=== PATIENT | male | born 1945 | race Caucasian/White ===

== ENCOUNTER 2016-09-08 10:59 | Emergency (ER) | payer OTHER ==
[~2016-09-08 10:59] MED LIST: BUPR75TA10 PO; CITA40TA13 PO; LISI-571 PO; METO25TA99 PO; MORP-32 PO; OXYC10TA8 PO
[2016-09-08 11:10] VITALS: BP 119/87; PULSE 110; RESP 16; O2SAT 98
--- NOTE | 2016-09-08 11:10 | ED.REPORT ---
HPI-General Illness Date of Service Sep 08, 2016 ED Provider: MD Linnette This is a 70 year old male with a history of hepatitis C presenting to the emergency department due to pain medication management concerns. The pt has a history of severe claudication with pain in the lower extremities. He has been worked up with vascular surgeon, Dr. Wyatt with understanding to undergo stenting on 09/22/2016. However, pt has been unable to see his PCP at [facility] due to changes in providers there. Pt last saw Dr. Gonzalez at [facility] who refused to prescribe his chronic pain medications. He takes 10 mg oxycodone three times a day for pain management, this was originally prescribed by Dr. Nobles, who no longer practices in the office. Based on ODILIA report today, the history is consistent with prescriptions. He is not over-using, not filling prescriptions early, and is not going to multiple providers for medications. He is now out of his medication and last took oxycodone 2 days ago. Nursing Notes Stated Complaint: POSSIBLE CHRONIC PAIN Chief Complaint: General Complaint Nursing Notes Reviewed: Yes Allergies: Coded Allergies: No Known Allergies (Verified , 04/08/16) Scheduled Bupropion (Bupropion) 75 Mg Tablet 75 MG PO HS Citalopram (Citalopram) 40 Mg Tablet 40 MG PO HS Lisinopril (Lisinopril) 5 Mg Tablet 2.5 MG PO DAILY Metoprolol Succinate ER (Metoprolol Succinate ER) 25 Mg Tab.er.24h 25 MG PO DAILY Morphine Sulfate ER (Morphine Sulfate ER) 15 Mg Tablet 30 MG PO DAILYWM Morphine Sulfate ER (Morphine Sulfate ER) 15 Mg Tablet 15 MG PO HS Scheduled PRN oxyCODONE (oxyCODONE) 10 Mg Tablet 10 MG PO TID PRN PRN For Pain General Time Seen by MD: 11:09 Chief Complaint Other Hx Obtained From: Patient Arrived By: Walk-in Sudden in Onset?: No Severity: Current: Moderate Pertinent Negative: Pt denies other symptoms Recent Healthcare: No recent doctor visit, No recent hospitalization Similar Sx Previous: No Past Medical History Past Medical History Hepatitis C spontaneous pneumothorax Reports: COPD Reports: Depression Past Surgical History none reported Smoking History Current Every Day Smoker Social History Alcohol Use: Denies alcohol use Drug Use: THC Ambulatory Status Cane Review of Systems Full Review of Systems Constitutional: Denies: Chills, Fever Respiratory: Denies: Non-productive cough, Shortness of breath Musculoskeletal: Reports: Extremity pain Neurologic: Denies: Headache Complete sys rev & neg: except as marked. Physical Exam Vital Signs Vital Signs Date Time Temp Pulse Resp B/P Pulse Ox O2 Delivery O2 Flow Rate FiO2 09/08/16 11:10 110 16 119/87 98 Room Air Initial VS: Reviewed General/Constitutional: Well-developed, Well-nourished Head / Eyes: Atraumatic, Normocephalic, PERRL ENT: Mucous membranes moist, Conjunctiva normal, No scleral icterus Neck: Supple, Non-tender, Full range of motion Respiratory: Breath sounds normal, Clear to auscultation, No respiratory distress Abdomen / GI: Soft, Non-tender, No guarding, No rebound, No distention Skin: Warm, Dry, No cyanosis Neurologic: Alert, Oriented, Nonfocal Psychiatric: Mood/affect normal, Behavior normal, Normal thought content Cardiovascular: Regular rhythm, Heart sounds NL, No murmurs, No rubs Heart Rate / Rhythm: Positive: Tachycardia Lower Extremity / Pelvis / MS: Vascular intact No hair on lower extremities, no palpable pulses, good cap refill Re-Eval/Medical Decision Re-Evaluation/Progress Note: Counseled tobacco abuse and discussion of smoking cessation Time of Eval: 13:17 Re-Evaluation/Progress Note: Discussed plan for d/c, all questions addressed Consultation : Referral / Consult Name: Brayan Gonzalez DO Call Returned at: 13:10 Note: Will see pt in office Counseled Regarding: Diagnosis, Lab results, Need for follow-up, When/why to return to ED Discharge & Departure Primary Impression: Claudication Additional Impression: Leg pain Laterality: bilateral Qualified Code: M79.604 - Pain in right leg Disposition: Home Discharge Condition All VS Reviewed: Yes Condition: Stable Additional Instructions: You really have gotten caught between multiple doctors coming and going. That is so frustrating. I am glad you have an apt [facility] Dr Peoples to figure out what can be done with the claudication and the pain you have from this. You had been on 10mg oxycodone 3 times a day and your pharmacy records indicate that you have no abused this at all (no early refills, no multiple providers etc). You have an issue that may well be fixable and thus alleviate need for continued narcotics. At this time, I have spoken with Dr Gonzalez. We have agreed that I will give a month prescription for oxycodone 10mg 3times/day. You need to schedule an apt with him in a month. You will have met with the vascular surgeon by then and will have a better plan in place for dealing with the issues underlying your pain. You can discuss the continued pain management options with Dr Gonzalez at that time. I would still encourage you to schedule, and keep, and apt with the chronic pain clinic. I hope the pain improved with better vascularization. Stopping smoking will help significantly with keeping the revascularized areas open. I am sorry you have been caught in the middle of all the provider changes at the [facility]. Good healing! Referrals: Brayan Gonzalez Attestation Portions of this note were transcribed by Allison Howard. I, Dr. Anglin personally performed the history, physical exam and medical decision-making; I reviewed and confirmed the accuracy of the information in the transcribed note. Signed by: gisela Layne. 09/08/2016, 18:00. copies to: Brayan Gonzalez Shawna L MD Sep 08, 2016 11:10 ALLISON HOWARD Sep 08, 2016 11:17
[2016-09-08] MEDS ORDERED: OXYC10TA8 PO (13:21)
[2016-09-08 13:38] VITALS: BP 110/54; PULSE 60; RESP 20; O2SAT 95
== END 2016-09-08 13:20 | disposition home or self-care (01) ==
LOC: SED 10:59
DX: I73.9 Peripheral vascular disease, unspecified (principal); M79.604 Pain in right leg; F17.200 Nicotine dependence, unspecified, uncomplicated; Z79.899 Other long term (current) drug therapy